=== PATIENT | female | born 1985 ===

== ENCOUNTER 2021-09-01 10:21 | Inpatient (IN) | payer OTHER ==
[~2021-09-01] VITALS: Ht 160 cm; Wt 65.8 kg
[2021-09-07] MEDS ORDERED: PRENATAL CAPLE1 EAC1 (01:27)
== END 2021-09-09 17:04 | disposition home or self-care (01) | DRG 768 ==
LOC: OB/GYN 09-05 13:15 → LDR 09-07 01:16 → OB/GYN 09-07 18:35
PROVIDERS: ADMIT Obstetrics & Gynecology Maternal & Fetal Medicine; ATTEND Obstetrics & Gynecology Maternal & Fetal Medicine
PROC: 10E0XZZ Delivery of Products of Conception, External Approach (ICD-10-PCS; principal; 2021-09-07)
PROC: 0DQR0ZZ Repair Anal Sphincter, Open Approach (ICD-10-PCS; 2021-09-07)
PROC: 0W8NXZZ Division of Female Perineum, External Approach (ICD-10-PCS; 2021-09-07)
PROC: 4A1HXCZ Monitoring of Products of Conception, Cardiac Rate, External Approach (ICD-10-PCS; 2021-09-07)
DX: O70.21 Third degree perineal laceration during delivery, IIIa (principal); Z37.0 Single live birth; Z3A.40 40 weeks gestation of pregnancy; Z20.822 Contact with and (suspected) exposure to COVID-19

== ENCOUNTER 2021-09-06 12:19 | Outpatient (CLI) | payer OTHER ==
[2021-09-07] MEDS ORDERED: PRENATAL CAPLE1 EAC1 (01:27)
== END 2021-09-06 12:49 | disposition home or self-care (01) ==
LOC: NST 12:19
PROVIDERS: ATTEND Obstetrics & Gynecology
DX: Z34.83 Encounter for supervision of other normal pregnancy, third trimester (principal)